=== PATIENT | male | born 1990 | race Caucasian/White ===

== ENCOUNTER 2016-10-02 11:18 | Emergency (ER) | payer OTHER ==
[~2016-10-02] VITALS: Ht 177.8 cm; Wt 100.0 kg
[2016-10-02] MEDS ORDERED: IBUPROFEN 600MG TABLET PO ONE (13:30)
[2016-10-02 13:42] VITALS: BP 166/88
== END 2016-10-02 15:36 | disposition home or self-care (01) ==
LOC: ER 11:18
DX: S60.221A Contusion of right hand, initial encounter (principal); F17.210 Nicotine dependence, cigarettes, uncomplicated; W51.XXXA Accidental striking against or bumped into by another person, initial encounter; Y93.89 Activity, other specified; Y92.9 Unspecified place or not applicable; Y99.8 Other external cause status
CPT/HCPCS: 73110; 73130; 99284